=== PATIENT | male | born 1960 | race African-American/Black ===

== ENCOUNTER 2024-05-12 04:00 | Emergency (ER) | payer SELFPAY ==
[~2024-05-12] VITALS: Ht 188 cm; Wt 111.8 kg
[2024-05-12 04:26] VITALS: O2SAT 99
[2024-05-12 04:58] LABS: BASOPHILS % 0.6 % (0.0-2.0); EOSINOPHILS % 1.1 % (0.0-5.0); HEMATOCRIT. 34.7 % (42.0-52.0); HEMOGLOBIN. 11.9 g/dL (14.0-18.0); MEAN CORPUSCULAR HEMOGLOBIN 33.1 pg (28.0-32.0); MEAN CORPUSCULAR HGB CONC 34.2 g/dL (31.0-37.0); MEAN CORPUSCULAR VOLUME 96.8 fL (80.0-94.0); MEAN PLATELET VOLUME 9.1 fl (7.4-10.4); MONOCYTES % 11.4 % (2.0-8.0); NEUTROPHILS % 62.9 % (40.0-76.0); PLATELET 108 x1000/uL (130-400); RED BLOOD CELL COUNT 3.59 mill/uL (4.7-6.1); RED CELL DISTRIBUTION WIDTH 13.4 % (11.6-14.6); WHITE BLOOD COUNT 9.3 x1000/uL (4.5-11.0)
[2024-05-12 05:22] LABS: CHLORIDE 104 mEq/L (98-107); POTASSIUM 3.8 mEq/L (3.5-5.1); SODIUM 140 mEq/L (136-145)
[2024-05-12 05:23] LABS: CARBON DIOXIDE 27 mEq/L (21-32)
[2024-05-12 05:24] LABS: CALCIUM 9.2 mg/dL (8.7-10.4)
[2024-05-12 05:28] LABS: CREATININE 1.1 mg/dL (0.6-1.3); GLUCOSE 110 mg/dL (70-105)
[2024-05-12 05:29] LABS: UREA NITROGEN BLOOD 13 mg/dL (9-23)
[2024-05-12 05:42] LABS: TROPONIN I HIGH SENSITIVITY < 4 ng/L (3.0-53)
[2024-05-12] MEDS: ASPIRIN 325MG TABLET PO ONE (06:00)
[2024-05-12 07:41] LABS: CLARITY URINE CLEAR (CLEAR); COLOR URINE RED (YELLOW); GLUCOSE URINE NEGATIVE (NEGATIVE); KETONES URINE NEGATIVE (NEGATIVE); LEUKOCYTE ESTERASE URINE TRACE (NEGATIVE); NITRITE URINE NEGATIVE (NEGATIVE); OCCULT BLOOD URINE 3+ (NEGATIVE); PROTEIN URINE 1+ (NEGATIVE); SPECIFIC GRAVITY URINE 1.005 (1.005-1.030); UROBILINOGEN URINE 0.2 E.U./dL (0.2-1.0)
[2024-05-12 08:39] LABS: SQUAMOUS EPITHELIAL CELL URINE RARE /lpf (RARE/1+)
[2024-05-12 08:40] LABS: BACTERIA URINE TRACE; YEAST URINE RARE
[2024-05-12 08:41] LABS: RBC URINE TNTC /hpf (0-2); WBC URINE 0-2 /hpf (0-2)
[2024-05-12 11:43] VITALS: BP 139/94; PULSE 74; RESP 16; TEMP 36.55848; O2SAT 99
[2024-05-12 12:03] LABS: FOLIC ACID (FOLATE) SERUM 10.02 ng/mL (>5.38); VITAMIN B12 SERUM 580 pg/mL (211-911)
[2024-05-13 11:56] LABS: *AMPHETAMINES SCREEN URINE NEGATIVE (NEGATIVE); *BARBITURATES SCREEN URINE NEGATIVE (NEGATIVE); *BENZODIAZEPINES SCREEN URINE NEGATIVE (NEGATIVE); *COCAINE SCREEN URINE PRESUMPTIVE POSITIVE (NEGATIVE); CANNABINOID URINE SCREEN PRESUMPTIVE POSITIVE (NEGATIVE); METHADONE URINE SCREEN NEGATIVE (NEGATIVE); OPIATES URINE SCREEN NEGATIVE (NEGATIVE); PHENCYCLIDINE URINE SCREEN NEGATIVE (NEGATIVE)
[2024-05-13 11:57] LABS: ECSTASY MDMA SCREEN URINE NEGATIVE (NEGATIVE)
== END 2024-05-12 10:00 | disposition left against medical advice (07) ==
LOC: ER 04:00 → EDBEDREQ 08:19 → ER 10:00
DX: R07.9 Chest pain, unspecified (principal); R31.9 Hematuria, unspecified; I10 Essential (primary) hypertension
CPT/HCPCS: 80305; 80048; 81003; 82607; 82746; 83036; 85025; 85379; 84484; 36415; 71045; 93005; 99285; Z7610 ×3